=== PATIENT | female | born 1980 | race African-American/Black ===

== ENCOUNTER 2019-09-28 09:06 | Emergency (ER) | payer MEDICAID, OTHER ==
[~2019-09-28] VITALS: Ht 157.5 cm; Wt 81.6 kg
[2019-09-28 10:12] VITALS: BP 117/75
[2019-09-28] MEDS ORDERED: ACETAMINOPHEN 500 MG TAB PO ONE (10:15)
== END 2019-09-28 11:11 | disposition home or self-care (01) ==
LOC: ER 09:06
DX: S86.912A Strain of unspecified muscle(s) and tendon(s) at lower leg level, left leg, initial encounter (principal); S29.019A Strain of muscle and tendon of unspecified wall of thorax, initial encounter; V43.52XA Car driver injured in collision with other type car in traffic accident, initial encounter; Y93.I9 Activity, other involving external motion; Y92.410 Unspecified street and highway as the place of occurrence of the external cause; Y99.8 Other external cause status
CPT/HCPCS: 72070

== ENCOUNTER 2023-11-09 04:51 | Emergency (ER) | payer MEDICAID ==
[~2023-11-09] VITALS: Ht 160 cm; Wt 90.0 kg
[2023-11-09] VITALS (7 sets, daily range): BP systolic 126–142; BP diastolic 58–79; PULSE 74–95; RESP 14–18; TEMP 98.1–98.6; O2SAT 94–100
[2023-11-09 06:33] LABS: Basophils # (auto) 0 10 ^3/uL (0-0.2); Eosinophils # (auto) 0.1 10 ^3/uL (0-0.8); Lymphocytes # (auto) 1.4 10 ^3/uL (0.4-5.4); Monocytes # (auto) 0.3 10 ^3/uL (0-1.3); Nucleated Red Blood Cells % 0.2 %
[2023-11-09 06:38] LABS: Basophils % (auto) 0.6 % (0.0-2.0); Chloride 110 mmol/L (98-107); Eosinophils % (auto) 0.9 % (0.0-7.0); Hematocrit 18.8 % (36.0-46.0); Lymphocytes % (auto) 23.4 % (10.0-50.0); Mean Corpuscular Hemoglobin 13.6 pg (28.0-32.0); Mean Corpuscular Hgb Conc. 25.8 g/dL (32.0-36.0); Mean Corpuscular Volume 52.7 fL (80.0-100.0); Monocytes % (auto) 5.7 % (0.0-12.0); Neutrophils # (auto) 4.2 10 ^3/uL (1.6-8.6); Neutrophils % (auto) 69.4 % (37.0-80.0); Potassium 3.6 mmol/L (3.5-5.1); Red Blood Cells 3.57 10^6/uL (4.0-5.20); Sodium 143 mmol/L (136-145)
[2023-11-09 06:39] LABS: Anion Gap 9 (5-15); Carbon Dioxide 24 mmol/L (20-30); Hemoglobin 4.9 g/dL (12.2-16.2); Red Cell Distribution Width 33.6 % (11.8-14.3)
[2023-11-09 06:40] LABS: Calcium 9.3 mg/dL (8.7-10.4)
[2023-11-09 06:44] LABS: Glucose 100 mg/dL (74-106)
[2023-11-09 06:49] LABS: BUN/Creatinine Ratio 7.9 (10.0-20.0); Blood Urea Nitrogen < 5 mg/dL (9-23)
[2023-11-09 07:47] LABS: INR 0.94 (0.9-1.15)
[2023-11-09 07:49] LABS: Anisocytosis Marked; Platelet Estimate Increased
[2023-11-09 07:50] LABS: Hypochromia Marked
[2023-11-09 07:51] LABS: Ovalocytes FEW; Stomatocytes Few
[2023-11-09 07:52] LABS: Tear Drop Cells FEW
== END 2023-11-09 12:11 | disposition short-term general hospital (02) ==
LOC: ER 04:51
DX: D64.9 Anemia, unspecified (principal); R53.1 Weakness; F17.210 Nicotine dependence, cigarettes, uncomplicated
CPT/HCPCS: 36415; 36430; 80048; 85025; 85610; 85730; 86850; 86900; 86901; 86920; 99285; P9016